=== PATIENT | female | born 1955 | race Caucasian/White ===

== ENCOUNTER → 2016-07-01 | Outpatient (CLI) | payer BC ==
[~2016-07-01] VITALS: Ht 163.8 cm; Wt 47.3 kg
[~2016-07-01] MED LIST: BENTYL10 MG PO; CALCIUM 500 +1 EAC2 PO; CO Q-10100 MG PO; FLAGYL500 MG PO; IBUPROFEN200 M1 PO; LIVALO2 MG PO
[2016-07-01 13:05] VITALS: BP 104/57
== END | disposition home or self-care (01) ==
LOC: IVINF 06-24 13:00
DX: M85.89 Other specified disorders of bone density and structure, multiple sites (principal); M81.0 Age-related osteoporosis without current pathological fracture
CPT/HCPCS: 96365; J3489